=== PATIENT | male | born 1950 | race African-American/Black ===

== ENCOUNTER 2022-03-15 11:29 | Emergency (ER) | payer OTHER ==
[~2022-03-15 11:29] MED LIST: Iopamidol-370 76% 500 ML 1 ML ONE
[2022-03-15 11:50] LABS: Hemoglobin 14.8 g/dL (14.0-18.0); Mean Corpuscular Hemoglobin 32.2 pg (27.0-31.0); Mean Corpuscular Volume 97.5 fL (78.0-98.0); RBC Distribution Width 13.6 % (11.5-14.5); White Blood Cell (WBC) Count 6.6 thou/uL (4.8-10.8)
[2022-03-15 11:59] LABS: PTT 28.5 sec (22.9-36.1); Prothrombin Time 13.4 sec (12.0-14.7)
[2022-03-15 12:16] LABS: AST (SGOT) 165 U/L (5-34); Albumin 3.2 g/dL (3.4-4.8); Alkaline Phosphatase 66 U/L (40-110); Anion Gap 11 mmol/L (10-20); BUN (Urea Nitrogen) 14 mg/dL (8.4-25.7); Calc. Creatinine Clearance 0 mL/min (70-130); Calcium 9.1 mg/dL (7.8-10.44); Carbon Dioxide 24 mmol/L (23-31); Chloride 104 mmol/L (98-107); Estimated GFR 94; Globulin 4.2 g/dL (2.4-3.5); Glucose 96 mg/dL (80-115); Potassium 4.9 mmol/L (3.5-5.1); Protein, Total 7.4 g/dL (5.8-8.1); Sodium 134 mmol/L (136-145)
[2022-03-15 12:17] LABS: ALT (SGPT) 185 U/L (8-55)
[2022-03-15 12:23] LABS: Eosinophils 2 % (0-10); Lymphocytes 31 % (21-51); MDiff Complete? YES; Mean Platelet Volume 7.2 fL (7.4-10.4); Monocytes 16 % (0-10); Neutrophil 45 % (42-75); Platelet Count 102 thou/uL (130-400); Platelet Morphology Comment Appears Decreased; Polychromasia SLIGHT = 2-3 cells (100X) (0-2/hpf); Reactive Lymphocytes 6 % (0-10)
[2022-03-15 12:54] LABS: Bilirubin Negative (Negative); Blood, Urine Negative (Negative); Clarity Clear (Clear); Glucose, Urine (Dipstick) Normal (Negative); Ketone, Urine Negative (Negative); Leukocyte Negative Leu/uL (Negative); Nitrite Negative (Negative); Protein, Urine (Dipstick) Negative (Neg-Trace); Specific Gravity, Urine 1.029 (1.002-1.036); Urobilinogen Normal mg/dL (Less than 2)
[2022-03-15 13:04] LABS: SARS-CoV-2 NAA Rapid Test Not Detected (NotDetected)
[2022-03-15] MEDS ORDERED: Aspirin Chewable 81 MG TAB ONE (13:15)
== END 2022-03-15 22:08 | disposition short-term general hospital (02) ==
LOC: ERS 11:29
DX: R29.810 Facial weakness (principal); I25.10 Atherosclerotic heart disease of native coronary artery without angina pectoris; Z86.73 Personal history of transient ischemic attack (TIA), and cerebral infarction without residual deficits; Z87.891 Personal history of nicotine dependence; Z20.822 Contact with and (suspected) exposure to COVID-19; Z79.82 Long term (current) use of aspirin
CPT/HCPCS: 36415; 70450; 70496; 70498; 71045; 80053; 81003; 84484; 85025; 85610; 85730; 93005; 94760; Q9967; U0002